=== PATIENT | female | born 1985 | race Hispanic/Latino ===

== ENCOUNTER 2023-05-15 19:41 | Inpatient (IN) | payer MEDICAID, SELFPAY ==
[2023-05-15] VITALS (25 sets, daily range): BP systolic 80–107; BP diastolic 51–67; PULSE 67–90; RESP 19; TEMP 36.8–37.1; O2SAT 98–100; BMI 26.9
--- NOTE | 2023-05-15 20:08 | XR_ITS ---
Examination: Biophysical profile, ultrasound age Limited Date and time of exam: May 15, 2023 2034 hrs. Indications: Category 2 tracing today, vaginal bleeding today Technique: Multiple transabdominal sonographic images of the pelvis abdomen obtained. Attention is directed to the breathing movement, gross body movement, amniotic fluid volume and tone. Findings: Amniotic fluid index 5.0 cm Total biophysical profile is 8 of 8. breathing movement is 2. Gross body movement is 2. tone is 2. Qualitative amniotic fluid volume is 2 Impression: Biophysical profile is 8 of 8. Viable intrauterine gestation cephalic presentation spine maternal right Cardiac motion 117 bpm
[2023-05-15] MEDS: BETAMET ACET/BETAMET NA PH (Celestone) 6 MG/ML VIAL 12 MG IM (22:52)
[2023-05-15] MEDS: RINGERS LACTATED 1000 ML 1,000 ML 125 ML IV (22:52)
[2023-05-15 23:09] LABS: Basophils % (Auto) 0 % (0-2.5); Eosinophils % (Auto) 0 % (0-10); Hemoglobin 11.2 g/dL (12.0-16.0); Immature Granulocytes % (Auto) 1 % (0-0); Immature Granulocytes Auto 0.11 Thou/mm3 (0.00-0.00); Lymphocytes # (Auto) 2.2 Thou/mm3 (1.0-4.8); Lymphocytes % (Auto) 16 % (10-50); Mean Corpuscular HGB Conc 33.9 g/dl (31.0-37.0); Mean Corpuscular Hemoglobin 28.3 pg (25.0-35.0); Mean Corpuscular Volume 83 fL (80-100); Monocytes # (Auto) 1.1 Thou/mm3 (0.0-0.8); Monocytes % (Auto) 7 % (0-12); Neutrophils # (Auto) 10.7 Thou/mm3 (1.8-7.7); Neutrophils % (Auto) 76 % (37-80); Nucleated Red Blood Cell % 0 /100 WBC (0); Platelet Count 295 Thou/mm3 (140-440); RDW Standard Deviation 39.6 fL (36.4-46.3); Red Blood Count 3.96 Miln/mm3 (4.00-5.20); White Blood Count 14.1 Thou/mm3 (3.6-11.0)
[2023-05-15 23:32] LABS: Anion Gap 9 (7-16); BUN/Creatinine Ratio 16 Ratio (12-20); Blood Urea Nitrogen 13 mg/dL (9-23); Calcium 9.4 mg/dL (8.3-10.6); Carbon Dioxide 20.4 mMol/L (20.0-31.0); Chloride 105 mMol/L (98-107); Creatinine (Component) 0.8 mg/dL (0.6-1.3); Estimated Creatinine Clearance 88.8 mL/min (>60); Glucose 125 mg/dL (74-106); Osmolality,Calculated 269 (275-295); Potassium 3.8 mMol/L (3.4-5.1); Sodium 134 mMol/L (136-145); eGFR > 60 See Note
[2023-05-15 23:53] LABS: Syphilis Nonreactive (Nonreactive)
[2023-05-16] VITALS (165 sets, daily range): BP systolic 85–113; BP diastolic 50–69; PULSE 60–108; RESP 15–20; TEMP 36.3–36.8; O2SAT 92–100; BMI 26.9
[2023-05-16] MEDS: RINGERS LACTATED 1000 ML 1,000 ML 125 ML IV ×4 (04:27→14:20)
[2023-05-16 04:37] LABS: ROM Swab Mixed By: BDR; Rupture of Fetal Membranes Negative (Negative); Swb Mxed in Solvent 1 min? Yes
--- NOTE | 2023-05-16 08:00 | XR_ITS ---
OB ultrasound Indication: Checking gestational age. May,. There is a single fetus in cephalic position. The head is to the maternal right. The heart rate is 140 BPM. The placenta is posterior grade 1. Three-vessel cord. The TERI is 5.9. The cervical length measures 4.1 cm. Conclusion: The gestational age is 34 weeks and 6 days. The estimated weight is 2557 +/- is 3 7 8 g Single fetus in cephalic position. The heart rate is 140 BPM. The TERI is 5.9, borderline oligohydramnios. The cervical length measures 4.1 cm..
--- NOTE | 2023-05-16 08:00 | XR_ITS ---
OB ultrasound: Limited. Indication checking biophysical profile. May, at 8:32 AM. The biophysical profile is 8 of 8. The TERI is 5.5. The heart rate is 123 BPM. Conclusion: The biophysical profile is 8 of 8. The TERI is 5.5, borderline oligohydramnios
--- NOTE | 2023-05-16 13:20 | PD.LDPN ---
Documentation for date of: 05/16/23 OB Labor Progress Note Pain Control Comments: 38 y/o @36W3D , has been admitted overnight for oligohydramnios and cat 2 FHT. Overnight baseline fluctuates between 100-120 Late deceleration were seen on review of Monitor overnight on 4 occasionas TERI and BPP were repeted today to have bordeline oligohydramnious Pt was counselled about a possibility of placental insufficiency given the occurence of late decelaration PLTCS for cat 2 FHT recieved 2 doses BMZ Peds at bedside counselled about baby prognosis Pelvic Exam Dilation (cm): finger tip Status status: Category l
[2023-05-16] MEDS: FAMOTIDINE INJ 10 MG/ML VIAL 2 ML 20 MG IV (14:42)
[2023-05-16] MEDS: METOCLOPRAMIDE INJ 5 MG/ML VIAL 2 ML 10 MG IVP (14:42)
[2023-05-16] MEDS: ceFAZolin/D5W 2 GM IV 2 GM/100 ML BAG IV (14:42)
--- NOTE | 2023-05-16 21:31 | OBDSUM_ITS ---
Data ([facility]) Data Hx Section: No : 5 Para: 4 Term: 4 : 0 : 0 Delivery Data ([facility]) Labor Data ROM Date: 05/16/23 ROM Time: 15:43 Rupture Type: AROM Amniotic Fluid: Clear Delivery Data Labor Onset Stage 1 Date: 05/16/23 Labor Onset Stage 1 Time: 15:44 Labor Onset Stage 2 Date: 05/16/23 Labor Onset Stage 2 Time: 15:44 Delivery Date: 05/16/23 Delivery Time: 15:44 Gestational age (weeks): 36 Gestational age (days): 3 Placenta Delivery Date: 05/16/23 Placenta Delivery Time: 15:45 Delivered by: Angella Saravia Delivery nurse: Stefania Wagner Other staff at delivery: Nursery Nurse Other staff at delivery: Supervising Film Or Videotape Editor Other staff at delivery: RT Other staff at delivery: Scrub Other staff at delivery: Dia Watts Other staff at delivery: Erin Rodriguez Other staff at delivery: DANIEL Other staff at delivery: [id number] Delivery Method Delivery: Delivery Type: Primary Anesthesia Type Primary Anesthesia: Spinal Placenta Placenta Delivery: Manual EBL Estimated blood loss (ml): 150 Umbilical Cord Umbilical Vessels: 3 Nuchal Cord: None Data ([facility]) [place] Data Infant Gender: Male Weight Grams: 2475 1 Minute Total: 9 5 Minute Total: 9
--- NOTE | 2023-05-16 21:32 | ESOP_ITS ---
Operative Note - AUTOMOTIVE SERVICE ADVISOR Procedure Date of procedure: 05/16/23 Procedure Performed: primary low transverse Csection Indication: Cat 2 FHT bradycardia borderline oligohydramnios Pre-Op diagnosis: Cat 2 FHT bradycardia borderline oligohydramnios Post-Op diagnosis: same Anesthesia type: Spinal Procedure description: Informed consent was obtained and the patient was taken to the operating room.? Identity was confirmed by double identifiers and she was placed on the operating table.? Epidural anesthesia was used she was positioned in the supine position.? The abdomen and perineum were prepped in the usual sterile fashion and a Hogan catheter was placed to continuous drainage.? Sterile drapes were applied.?The incision site was tested for adequacy of anesthesia.? A Pfannenstiel skin incision was made with a scalpel and carried to the subcutaneous fat up to the rectus fascia.? The rectus fascia was incised on either side of the midline and the incisions were extended bilaterally.? The fascia was gently dissected off the ventral surface of the rectus muscle both superiorly and inferiorly. blunt entry to peritoneum with a finger made. Uterine incision made in radha lower uterine segment. baby was noted to be in cephalic presentation, delivered vertex. Umbilical cord , was doubly clamped, divided and the infant was handed over to the waiting team.? placenta delivered by controlled cord traction.The interior of the uterus was now thorougly cleaned of all blood and debris and membranes.? The? hysterotomy was closed using 0 vicryl suture in double layers. Once the repair was completed the hysterotomy was inspected, d noted to be adequately hemostatic The rectus fascia was now repaired using 0 Vicryl suture in a running fashion.? The subcutaneous layer was now copiously irrigated using warm normal saline.? All bleeding points were cauterized using the Bovie.?The skin was closed using 4-0 Monocryl in a subcuticular fashion.? The skin was cleaned and a sterile dressing was applied. The patient was now undraped, the abdomen and back were thoroughly cleaned and she was now transferred to the recovery room in a stable Estimated blood loss (ml): 150 Surgical staff Operation Date: 05/16/23 15:15 Case Staff BUSINESS OFFICE REPRESENTATIVE: Jluis Reynolds RN First Assistant: Erin Layton Diagnosis Problem List Completed Was Problem List Reviewed/Reconciled?: Yes
[2023-05-16 22:04] LABS: Basophils % (Auto) 0 % (0-2.5); Eosinophils % (Auto) 0 % (0-10); Hematocrit 29.1 % (36.0-46.0); Hemoglobin 9.7 g/dL (12.0-16.0); Immature Granulocytes % (Auto) 1 % (0-0); Immature Granulocytes Auto 0.09 Thou/mm3 (0.00-0.00); Lymphocytes # (Auto) 1.8 Thou/mm3 (1.0-4.8); Lymphocytes % (Auto) 10 % (10-50); Mean Corpuscular HGB Conc 33.3 g/dl (31.0-37.0); Mean Corpuscular Hemoglobin 28.4 pg (25.0-35.0); Mean Corpuscular Volume 85 fL (80-100); Monocytes # (Auto) 1.4 Thou/mm3 (0.0-0.8); Monocytes % (Auto) 8 % (0-12); Neutrophils # (Auto) 13.9 Thou/mm3 (1.8-7.7); Neutrophils % (Auto) 81 % (37-80); Nucleated Red Blood Cell % 0 /100 WBC (0); Platelet Count 245 Thou/mm3 (140-440); Red Blood Count 3.41 Miln/mm3 (4.00-5.20); White Blood Count 17.1 Thou/mm3 (3.6-11.0)
--- NOTE | 2023-05-16 22:30 | PC.NURSE ---
LR 1000ml with 20 unit of pitocin IV 125ml/hr x1hung at 2227 on 05/16/2023. Mar did not prompt secondary nurse verification. Raven RN at side to confirm orders.
[2023-05-17 00:58] VITALS: BP 98/62; PULSE 59; RESP 18; TEMP 36.9; O2SAT 97
[2023-05-17] MEDS: KETOROLAC INJ 30 MG/ML VIAL IVP (01:06)
[2023-05-17] MEDS: ACETAMINOPHEN 325 MG TABLET 650 MG PO ×2 (03:31→20:35)
[2023-05-17 04:15] VITALS: BP 94/54; PULSE 60; RESP 18; TEMP 36.8; O2SAT 97
[2023-05-17 08:00] VITALS: BP 93/54; PULSE 66; RESP 14; TEMP 36.9; O2SAT 97
[2023-05-17] MEDS: RINGERS LACTATED 1000 ML 1,000 ML 125 ML IV (08:33)
--- NOTE | 2023-05-17 11:33 | PC.CC ---
SS referral for pt Brianna Ramon, for pt with hx of depression. Pt is set to D/c 05/18/23. From bedside GWENDOLYN Li, PPD screening has not been completed at this time. Per Jen, pt is appropriate with FOB at bedside. Pt experience difficulty with latching is currently bottle feeding. Plan will be for PRODUCTION DRILLING MACHINE OPERATOR CC to follow up with pt to complete referral and offer community resources.
[2023-05-17] MEDS: IBUPROFEN TAB 400 MG TABLET 800 MG PO (11:35)
[2023-05-17 12:16] VITALS: BP 98/62; PULSE 65; RESP 16; TEMP 36.8; O2SAT 96
--- NOTE | 2023-05-17 16:15 | PD.LDPPPRG ---
Subjective Subjective Interval history: Delivery type: Patient doing well this morning. No acute complaints. Ambulating, tolerating p.o. and voiding without difficulty. HTN/Pre-Eclampsia screen: No chest pain, shortness of breath, headache, visual changes, epigastric or right upper quadrant pain. Breast-feeding, lochia diminishing. Bowel: Flatus+/ Exam Vital Signs Temp Pulse Resp BP Pulse Ox O2 Del Method 98.3 F 65 16 98/62 96 Room Air 05/17/23 12:16 05/17/23 12:16 05/17/23 12:16 05/17/23 12:16 05/17/23 12:16 05/17/23 12:16 Constitutional Constitutional: no acute distress Routine HEENT Exam Head: Present normocephalic and atraumatic Eye: Present EOMI and PERRL ENT: Present mucous membranes moist Routine Neck Exam Neck: Present supple and trachea midline Routine Respiratory Exam Respiratory: Present chest non-tender, lungs clear, normal breath sounds and no resp distress Routine Cardiovascular Exam Cardiovascular: Present RRR Routine Abdominal Exam Abdominal: Present soft and normoactive bowel sounds Routine Extremities Exam Extremities: Present full ROM Routine Skin Exam Skin: Present intact, dry and warm Routine Neurological Exam Neurological: Present alert, oriented X3 and CN II-XII intact Routine Psychiatric Exam Psychiatric: Present normal affect and normal thought process Objective Labs 05/16/23 21:41 05/15/23 22:35 Labs: Laboratory Results - last 24 hr 05/16/23 21:41 WBC 17.1 H RBC 3.41 L Hgb 9.7 L Hct 29.1 L MCV 85 MCH 28.4 MCHC 33.3 RDW Std Deviation 41.0 Plt Count 245 D Neut % (Auto) 81 H Lymph % (Auto) 10 [place] % (Auto) 8 Eos % (Auto) 0 Baso % (Auto) 0 Neut # (Auto) 13.9 H Lymph # (Auto) 1.8 [place] # (Auto) 1.4 H Eos # (Auto) 0.0 Baso # (Auto) 0.0 Immature Gran # (Auto) 0.09 H Absolute Nucleated RBC 0.00 Immature Gran % 1 H Nucleated RBC % 0 Assessment & Plan Problem List (1) delivery delivered: Status: Acute Assessment and plan: 1. Continue routine /post-op care 2. Labs reviewed, cbc appropriate 3. Remove dressing/Hogan 4. Encourage to ambulate, shower 5. Encourage PO intake, breast feeding Time Spent With Patient Time: Total time spent is greater than 50% in coordination of care (as documented) at patient's floor/unit and/or counseling patient:
[2023-05-17 20:25] VITALS: BP 101/65; PULSE 75; RESP 16; TEMP 36.7; O2SAT 96
[2023-05-18 03:20] VITALS: BP 104/67; PULSE 71; RESP 16; TEMP 36.9; O2SAT 97
[2023-05-18] MEDS: ACETAMINOPHEN 325 MG TABLET 650 MG PO (03:32)
[2023-05-18 08:44] VITALS: BP 106/72; PULSE 72; RESP 18; TEMP 36.4; O2SAT 95
[2023-05-18] MEDS: IBUPROFEN TAB 400 MG TABLET 800 MG PO (11:49)
--- NOTE | 2023-05-18 13:00 | PD.LDPPPRG ---
Subjective Subjective Interval history: Delivery type: Patient doing well this morning. No acute complaints. Ambulating, tolerating p.o. and voiding without difficulty. HTN/Pre-Eclampsia screen: No chest pain, shortness of breath, headache, visual changes, epigastric or right upper quadrant pain. Breast-feeding, lochia diminishing. Bowel: Flatus+/ BM+ Exam Vital Signs Temp Pulse Resp BP Pulse Ox O2 Del Method 97.5 F 72 18 106/72 95 Room Air 05/18/23 08:44 05/18/23 08:44 05/18/23 08:44 05/18/23 08:44 05/18/23 08:44 05/18/23 08:44 Constitutional Constitutional: no acute distress Routine HEENT Exam Head: Present normocephalic and atraumatic Eye: Present EOMI and PERRL ENT: Present mucous membranes moist Routine Neck Exam Neck: Present supple and trachea midline Routine Respiratory Exam Respiratory: Present chest non-tender, lungs clear, normal breath sounds and no resp distress Routine Cardiovascular Exam Cardiovascular: Present RRR Routine Abdominal Exam Abdominal: Present soft and normoactive bowel sounds Routine Extremities Exam Extremities: Present full ROM Routine Skin Exam Skin: Present intact, dry and warm Routine Neurological Exam Neurological: Present alert, oriented X3 and CN II-XII intact Routine Psychiatric Exam Psychiatric: Present normal affect and normal thought process Objective Labs 05/16/23 21:41 05/15/23 22:35 Assessment & Plan Problem List (1) delivery delivered: Status: Acute Assessment and plan: PPD/POD#2 1. Continue routine care 2. Transition to PO meds. 3. Encourage to ambulate/ breast-feed 4. Anticipate discharge home today. Time Spent With Patient Time: Total time spent is greater than 50% in coordination of care (as documented) at patient's floor/unit and/or counseling patient:
--- NOTE | 2023-05-18 13:01 | ESDS_ITS ---
DS: Providers Provider Date of admission: 05/16/23 12:11 Primary care physician: Physician No Primary/Family Admitting Provider: Rajat Sol MD Attending Provider on Admission: Robby Marroquin MD Consults: 05/16/23 15:28 Referral Routine Comment: Attending Provider on DC: Robby Marroquin MD Discharging Provider: Robby Marroquin MD DS: Diagnosis Discharge Diagnosis (1) delivery delivered: Status: Acute (2) Threatened labor, antepartum: Status: Acute (3) Intrauterine : Status: Acute Problem List Completed Was Problem List Reviewed/Reconciled?: Yes Summary/Hosp Course Peripartum Data Procedures: Procedures Operation Date: 05/16/23 15:15 Actual Procedure Side Surgeon p in OB Not Applicable Angella Saravia MD Time Spent with Patient Time attestation: Total time spent providing and/or coordinating discharge services: Exam Vital Signs Temp Pulse Resp BP Pulse Ox O2 Del Method 97.5 F 72 18 106/72 95 Room Air 05/18/23 08:44 05/18/23 08:44 05/18/23 08:44 05/18/23 08:44 05/18/23 08:44 05/18/23 08:44 Discharge Plan Plan Patient Disposition: HOME (Self Care) Patient condition on transfer: Stable Prescriptions/Referrals Prescriptions/Med Rec: New hydrocodone-acetaminophen 5-325 mg Tablet 1 tab PO Q6HR MDD 4 PRN (Reason: Patient rated pain 9 to 10) 5 Days Qty: 20 0RF ibuprofen 400 mg Tablet 800 mg PO Q8H PRN (Reason: See Comments) 10 Days Qty: 30 0RF Continued Vitamin Tablet 1 tab PO QDAY Referrals: Robby Marroquin MD [Physician] - No Primary/Family,Physician [Primary Care Provider] - Patient/Caregiver Discharge Instructions Meds to Beds: Yes Discharge Activity: activity as tolerated Education Materials: After a , : Caring for Yourself, C Section Dc Print Language: American Stand Alone Forms: Patient Portal Info Letter, DC from Surgery Discharge Order Discharge Orders: Discharge (Routine); Ordered 05/18/23 Ordered By: Robby Marroquin Planned Discharge Date 05/18/23
--- NOTE | 2023-05-18 16:31 | PC.CC ---
SS referral for pt Brianna Ramon, for pt with hx of depression. Score of 0 on recent screening. From GWENDOLYN Shin pt is appropriate with infant with no concerns being reported at this time. Tox screen for pt is not available at time of encounter. At time of encounter pt is noted to be alert and oriented to person, place and situation. Pt is agreeable to meet with CUSTOM STOCK MAKER CC at this time. CUSTOM STOCK MAKER CC explained role and reason for referral. Pt reports that she experience a brief episode following delivery many years ago. Pt reports that episode lasted a few days and pt recovered without accessing help. Pt reports that if needed she does know how to access help. Pt reports SABA Friedman [phone] is part of family dynamic. Pt reports this is her fifth child 19, 14, 10, 5 and NB. Pt reports having all needs for infants D/c home. Pt reports family will D/c to [address] [place] [address] in [place]. Pt reports having support. Pt is connected with [employer]. Pt does not plan to apply for other community based assistance. Pt reports FOB is gainfully employed. Pt denies any past or present encounters with CWS. Pt denies any hx of DV or substance use. At this time pt has declined any further intervention. SS to remain available as needed.
== END 2023-05-18 14:53 | disposition home or self-care (01) | DRG 540 ==
LOC: S4SX 19:44 → S4NX 22:36 → S4SX 22:47 → S4NX 05-16 15:25
PROVIDERS: Admitting Provider Obstetrics & Gynecology; Visit Provider Student in an Organized Health Care Education/Training Program
PROC: 10D00Z1 Extraction of Products of Conception, Low, Open Approach (ICD-10-PCS; CPT 59514; principal; 2023-05-16 15:00)
DX: O76 Abnormality in fetal heart rate and rhythm complicating labor and delivery (principal); O41.03X0 Oligohydramnios, third trimester, not applicable or unspecified; Z3A.36 36 weeks gestation of pregnancy; Z37.0 Single live birth
CPT/HCPCS: 36415; 59025; 59899; 76805; 76819; 80048; 84112; 85025; 86780; 86850; 86900; 86901; A4649; J0689; J0702; J1885; J2274; J2371; J2590; J2765; J3010; J3490; J7120; A9270